=== PATIENT | male | born 2000 | race Caucasian/White ===

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

== ENCOUNTER → 2020-01-17 17:39 | Outpatient (CLI) | payer OTHER, SELFPAY | PROVIDERS: PCP Family Medicine; Referring Provider Family Medicine; Visit Provider Family Medicine | DX: R05 Cough (principal) | CPT/HCPCS: 87633 ==

== ENCOUNTER → 2020-03-04 17:03 | Outpatient (CLI) | payer OTHER, SELFPAY ==
--- NOTE | 2020-03-04 17:06 | RAD_ITS ---
STUDY: X-RAY - LUMBAR SPINE REASON FOR EXAM: Male, 20 years old. Low back pain for about 8 months TECHNIQUE: 5 view(s) of the lumbar spine were obtained. COMPARISON: None FINDINGS: Normal lumbar lordosis. There is no substantial scoliosis. There is a normal alignment of the vertebrae. Normal vertebral bodies and endplates. Normal disc space heights. The soft tissue structures are unremarkable. RAD/L/S Spine Min 4 Views IMPRESSION: Normal x-ray examination of the lumbar spine. Electronically Signed: Ethan Coronado MD at 17:30 EDT , Service support ,
== END ==
PROVIDERS: PCP Family Medicine; Referring Provider Family Medicine; Visit Provider Family Medicine
DX: M54.9 Dorsalgia, unspecified (principal)
CPT/HCPCS: 72110

== ENCOUNTER → 2020-04-22 14:24 | Outpatient (CLI) | payer OTHER, SELFPAY ==
--- NOTE | 2020-04-22 14:26 | MRI_ITS ---
STUDY: MRI LUMBAR SPINE WITHOUT CONTRAST REASON FOR EXAM: Male, 20 years old. back pain, felt and quot;pop and quot; last week when squatting, rt hip pain TECHNIQUE: Standardized fat and water weighted pulse sequences were obtained in the sagittal and axial planes. COMPARISON: X-ray 03/04/2020 FINDINGS: T12-L1: Normal endplates. Normal disc height, hydration and morphology. Normal bilateral facet joints. Normal central canal and bilateral lateral recesses. Normal bilateral intervertebral neural foramina. Normal lumbar lordosis. Mild levoscoliosis centered at L3. Normal conus medullaris that terminates at the T12/L1. L1-2: Normal endplates. Normal disc height, hydration and morphology. Normal bilateral facet joints. Normal central canal and bilateral lateral recesses. Normal bilateral intervertebral neural foramina. L2-3: Mild disc desiccation but no disc protrusion, spinal stenosis, or neural foraminal stenosis. L3-4: Normal endplates. Normal disc height, hydration and morphology. Normal bilateral facet joints. Normal central canal and bilateral lateral recesses. Normal bilateral intervertebral neural foramina. L4-5: Mild broad disc protrusion produces mild spinal stenosis with mild bilateral lateral recess stenosis but no neural foraminal stenosis. L5-S1: Mild broad disc protrusion produces mild spinal stenosis with mild bilateral lateral recess stenosis and mild bilateral neural foraminal stenosis. Normal visualized sacral ala. Normal visualized paraspinous soft tissue structures. MRI/Spine Lumbar (Routine) IMPRESSION: Mild levoscoliosis with degenerative disc disease as described above. Electronically Signed: Jacinto Gary MD at 16:57 EDT Tel , Service support ,
== END ==
PROVIDERS: PCP Family Medicine; Referring Provider Family Medicine; Visit Provider Family Medicine
DX: M54.9 Dorsalgia, unspecified (principal)
CPT/HCPCS: 72148

== ENCOUNTER 2020-04-27 12:15 | Outpatient (RCR) | payer OTHER, SELFPAY ==
--- NOTE | 2020-03-25 15:18 | MASS.EVAL ---
Massage Therapy Evaluation: Initial Evaluation Date: 03/18/2020 SUBJECTIVE: Felton is a 20 year old male who was referred to the [facility] for a massotherapy evaluation by Dr. Mcginnis with the diagnosis of back pain. Felton presents today with the symptoms of pain and tension in his neck, shoulders, back, hips and right shoulder. He also complains of having knee pain that he is being treated with physical therapy at the time. OBJECTIVE: Upon observation Felton has some posture issues with his head and shoulders forward from the neutral position in sitting and standing. After examination and palpation I found Felton to have high muscle tension with tenderness and myofascial restrictions in his sub occipitals, levator scapulae, trapezius, rhomboids, scalenes, and paraspinals muscle group. His QL?s, lumbar paraspinals, piriformis, glute medius, glute minimus all had high tension with fascial restrictions and tender points. The first treatment consisted of a one hour massage to his full body with myofascial release, muscle stripping, trigger point compression techniques. ASSESSMENT: I feel that Felton is a good candidate for massotherapy at this time. He had a favorable response to the first treatment with reduction in his muscle aches, pain and tension. PLAN: The plan of care was reviewed with the patient. The patient is to be seen on an as needed basis for a total of ten sessions with the recommendation of once every month for a one hour treatment.
--- NOTE | 2020-10-14 11:58 | DS.PCM_ITS ---
Massage Therapy Discharge Summary: Discharge Date: 10/14/2020 Felton was seen for a massotherapy evaluation on 03/18/2020 with the diagnosis of back pain. He was treated with three sessions of massage therapy consisting of deep pressure soft tissue techniques, myofascial release and trigger point compression to his cervical, thoracic, lower back, lower extremities and hips. At this time this patient is being discharged from our care at [facility] facility.
== END 2020-04-27 19:00 | disposition home or self-care (01) ==
LOC: MASS 12:15
PROVIDERS: PCP Family Medicine; Visit Provider Family Medicine
DX: M54.9 Dorsalgia, unspecified (principal)
CPT/HCPCS: 97124

== ENCOUNTER → 2020-05-24 09:31 | Outpatient (CLI) | payer OTHER, SELFPAY | PROVIDERS: PCP Family Medicine; Referring Provider Family Medicine; Visit Provider Family Medicine | DX: R05 Cough (principal) | CPT/HCPCS: 87635; 94799; U0003 ==

== ENCOUNTER 2020-05-28 10:00 | Outpatient (RCR) | payer OTHER, SELFPAY ==
--- NOTE | 2020-03-06 07:52 | HP.PTEVAL_ITS ---
Patient's Visit Information LINK SAPP is a 20 year old M referred to Physical Therapy by Dr. Kojo Mcginnis MD with a diagnosis of LBP and B knee pain/PFS. Date of Evaluation: 03/06/20 Physical Therapist: Herminio Garnica, DPT, OCS, CSCS - Visit Plan Frequency: 3x /Week Duration: 2-4 Months Plan: 3x/week for 4-6 weeks to start. Please roll HS and ITB and stretch. Work on yoga stretches for rotation, flexion and ext of LB and progress to I. Work on hip and core strength and quad strength, focus L quad end range strength and hip stabs with core. Biomechanics of squat without collapsing knees. Progression. Activity modification as able. ice if needed. - Subjective Knees and back been hurting since football season. Knees anteriorly with squatting and running. Sitting in small area very hurt knees. 5/10 day after s quatting. Last couple months without gym it is not better. Friend has squat rack and bench and does body weight stuff. Back is similar pattern with sitting adn squatting 5/10 especiallya fter squatting. Sleep is OK for the most part, knees sometimes wake him up. Does nto avoid squatting but doesn't look forward to it. Chores and ADLs are normal. Workouts are squatting benching running, pushups. Did legs everyday and ran alot when in school. - Pain B knee pain. Pain Intensity (Out of 10): 1 Pain Intensity Range: 0, 5 back pain low Pain Intensity (Out of 10): 1 Pain Intensity Range: 0, 5 - Objective wALKS NORMAL AND TRASNITIONS NORMAL TODAY. Knees collapse in with dips and squats. Tender B lateral patella underside. Full knee AROM and flexibility is decent except HS -20 90/90 B and ITB tight B. L more tender than R and hard time getting full quad contraction qucikly on L side. Strength L quad 4 and R 4+, HS 5/5 B, hips abd, ext rotation and ext 4- and flexion 4+ B. ankles strength 5/5. + patellar grind B, - bounce home B. LB AROM end range of ext stiff adn painful but better with repetition, flexion similar. sB not painful. No tenderness in soft tissue of LB but PA pressure hurts mid lumbar. reflexes 2/3 patella and achilles. Sensation LE WNL to gross light touch. frontal plane mechanics of feet are WNL and unremarkable. - Goals Goal 1:: I approp LB ROM and core strength to limit future problems. Goal Time Frame: 6-8 Weeks Goal 2:: Full L quad contractiona dn full LB AROM without pain or stiffness. Goal Time Frame: 4-6 Weeks Goal 3:: squat without increasing pain for football Goal Time Frame: 4-6 Weeks Goal 4:: Sllep without waking at night due to pain. Goal Time Frame: 4-6 Weeks - Rehabilitation Potential Physical Therapy Diagnosis: B PFS and LBP/tightness. Rehabilitation Potential: Good - Anticipated Interventions Patient/Client Instruction: Educate patient on: Condition, Plan of Care For the Purpose of:: To decrease pain, To improve muscle performance and motor function, To increase tolerance to activity/condition/position Therapeutic Exercise to Include: Strength training, Postural training, Flexibilty training, Neuromotor development, Passive ROM, Active ROM, Dynamic Lumbar Stabilization, Delia Exercises For the Purpose of:: To decrease pain, To increase ROM, To improve muscle performance and motor function, To increase tolerance to activity/condition/position Manual Therapy Techniques to Include: Mobilization, Soft tissue mobilization Cryotherapy (ice pack, ice massage): Yes Thank you for the opportunity to evaluate your patient. For Medicare and Medicare HMO plans, please review the plan of care and approve it. It will need to be FAXED BACK to us at [phone] for Medicare purposes. For Medicare only, by signing this I certify the plan of care. Please let me know if there are questions or concerns regarding this plan of care. Physician Signature: Date:
--- NOTE | 2020-04-06 13:21 | HP.PTREVAL_ITS ---
Dr. Kojo Mcginnis MD, It has been my pleasure to treat LINK SAPP over the last 7 visits for LBP and B knee pain/PFS. Please see the progress note below for an update on the physical therapy plan of care! Subjective: Knees quite a bit better. 2/10 intermittently. Being on them is still worse but he hasn't noticed them last few weeks. Back still hurts all the time no matter what. It is better moving and worse sitting and at rest. No problem sleeping. Lifting heavy worse with hang cleans and pwer cleans, linges etc. Objective/Function: Better LB ROM but flexion end range still hurts and ext slightly limited. Squatting shows some ext in Lumbar spine due to diminished pelvic mobility. Walks wella dn steps one at a time adn two at a time without pain today in knees. Plan Plan: 2x/week for 4 weeks... Please encourage to do hip and LE strength on his own in gym before or after session. Spend clinic time... 1. ensuring squat and hang clean technique especially with neutral spine. 2. Work on HS and hip flexor and hip and LB felxibility with rollotu and yoga moves and continued quaruped and functional core strength. Progress to I. Goals Goal 1:: I approp LB ROM and core strength to limit future problems. Goal Time Frame: 6-8 Weeks Goal Progress: Progressing Goal 2:: Full L quad contractiona dn full LB AROM without pain or stiffness. Goal Time Frame: 4-6 Weeks Goal Progress: flexion spine hurts sligh Goal 3:: squat without increasing pain for football Goal Time Frame: 4-6 Weeks Goal Progress: Legs not back Goal 4:: Sllep without waking at night due to pain. Goal Time Frame: 4-6 Weeks Goal Progress: Goal Met Goal 5:: Squat without losing neutal spine position Goal Time Frame: 2-4 Weeks Goal Progress: NEW GOAL Anticipated Interventions Patient/Client Instruction: Educate patient on: Condition, Plan of Care For the Purpose of:: To decrease pain, To improve muscle performance and motor function, To increase tolerance to activity/condition/position Therapeutic Exercise to Include: Strength training, Postural training, Flexibilty training, Neuromotor development, Passive ROM, Active ROM, Dynamic Lumbar Stabilization, Delia Exercises For the Purpose of:: To decrease pain, To increase ROM, To improve muscle performance and motor function, To increase tolerance to activity/condition/position Manual Therapy Techniques to Include: Mobilization, Soft tissue mobilization Cryotherapy (ice pack, ice massage): Yes Please do not hesitate to contact me at [phone] by phone or Fax: if you have questions or concerns regarding this new plan of care! Sincerely, Herminio Garnica, DPT, OCS, CSCS
--- NOTE | 2020-04-28 15:48 | HP.PTREVAL ---
Dr. Kojo Mcginnis MD, It has been my pleasure to treat LINK SAPP over the last 9 visits for LBP and B knee pain/PFS. Please see the progress note below for an update on the physical therapy plan of care! Subjective: Hurt self squatting and had MRI and showed disc bulges. Had to shut it down for a while. Still in pain in LB 3/10 at rest. Back to baseline, better with moving around. Hurt bad and popped when he was squatting two weeks with light weight. Sleeping OK lately but not able to work out. Working and able to do job without missing it. 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 Hurt in car on way to school though. Knees are fine. Objective/Function: back ext mod limtied and painful , SB are OK. Flexion is painful and limited and slow. 2/3patella adn achilles reflex. Sensation WNL LE. Tender to trasnfer off table but better after pressups. Better ext ROM and less pain after pressups. Overall more tender with movement and still tight in piriformis, hip flexors and HS. Presentation is worse than last session, more acute. MRI results show disc bulges, DDD and levoscoliosis. Trasnfers out of chair and from leaning on table are slower adn wince worthy today. Plan Plan: 3x/week for 4 weeks for ... 1. Get ROM back in ext without pain and progress to flexiona and rotation as tolerated gently, mobs as needed. 2. core strengthening progression on mat. 3. Resume yoga for hip flexibility and LB flexibility when tolerated. 4. Progress back to squats, shoulder press, good mornings, deadlifts when pain gone and moving well GENTLY. ES with ice to LB if needed. Goals appropriate adn fair prognosis. Goals Goal 1:: I approp LB ROM and core strength to limit future problems. Goal Time Frame: 6-8 Weeks Goal Progress: Progressing, approp Goal 2:: Full L quad contractiona dn full LB AROM without pain or stiffness. Goal Time Frame: 4-6 Weeks Goal Progress: flexion spine hurts sligh Goal 3:: squat without increasing pain for football Goal Time Frame: 4-6 Weeks Goal Progress: Legs not back Goal 4:: Sllep without waking at night due to pain. Goal Time Frame: 4-6 Weeks Goal Progress: Goal Met Goal 5:: Squat without losing neutal spine position Goal Time Frame: 2-4 Weeks Goal Progress: NEW GOAL Goal 6:: Move from bed and chair without hesitation. Goal Time Frame: 4-6 Weeks Anticipated Interventions Patient/Client Instruction: Educate patient on: Condition, Plan of Care For the Purpose of:: To decrease pain, To improve muscle performance and motor function, To increase tolerance to activity/condition/position Therapeutic Exercise to Include: Strength training, Postural training, Flexibilty training, Neuromotor development, Passive ROM, Active ROM, Dynamic Lumbar Stabilization, Delia Exercises For the Purpose of:: To decrease pain, To increase ROM, To improve muscle performance and motor function, To increase tolerance to activity/condition/position Manual Therapy Techniques to Include: Mobilization, Soft tissue mobilization Cryotherapy (ice pack, ice massage): Yes Please do not hesitate to contact me at [phone] by phone or if you have questions or concerns regarding this new plan of care! Sincerely, Herminio Garnica, DPT, OCS, CSCS
--- NOTE | 2020-05-28 10:48 | HP.PTDCSUM_ITS ---
It has been my pleasure to treat LINK SAPP referred by Dr. Kojo Mcginnis MD, with the diagnosis of LBP and B knee pain/PFS for a total of 22 visit(s). Discharge Date: 05/28/20 Please see the following information for a summary of their discharge status. Subjective: Slight pinch with ext or felxion just off to R, otherwise doing well. Will go back to school and let hardware trainer take over in two days. Will fill out LYN prior to departure to send info if requested. B knee pain. Pain Intensity (Out of 10): 0 back pain low Pain Intensity (Out of 10): 2 % Improvement: 70 Objective/Function: aROM L/S is fulla nd painfree at departure today, needed some work as had slight pain at arrival at end ranges of ext adn flexion. Able to squat with light wieghts and extrememfocus without losing appropriate pelvic position. Walks well, elliptical without pain. Goal 1:: I approp LB ROM and core strength to limit future problems. Goal Progress: Goal Met, hardware trainer at [facility] Goal 2:: Full L quad contractiona dn full LB AROM without pain or stiffness. Goal Progress: Goal Met Goal 3:: squat without increasing pain for football Goal Progress: Goal Met, light squat Goal 4:: Sllep without waking at night due to pain. Goal Progress: Goal Met Goal 5:: Squat without losing neutal spine position Goal Progress: met with bar Goal 6:: Move from bed and chair without hesitation. Goal Progress: Goal Met Plan: d/c , pt back to school to see hardware trainer out there adn continue workout as given with slow progression of squats and weights and football. Discharge Comments: Pt back to school and will last picker with hardware trainer at school. May sign a release to talk to or fax to hardware trainer. If there are questions or concerns regarding this patient's physical therapy, please feel free to call me at [phone]. Thank you for the referral of this patient. Sincerely, Herminio Garnica, DPT, OCS, CSCS
== END 2020-05-28 19:00 | disposition home or self-care (01) ==
LOC: PT 10:00
PROVIDERS: PCP Family Medicine; Referring Provider Family Medicine; Visit Provider Family Medicine
DX: M22.2X1 Patellofemoral disorders, right knee (principal); M22.2X2 Patellofemoral disorders, left knee; M54.5 Low back pain
CPT/HCPCS: 97014; 97110; 97140; 97162; 97164; G0283

== ENCOUNTER → 2023-07-12 | Outpatient (CLI) | payer OTHER, SELFPAY | END | disposition home or self-care (01) | LOC: LAB 15:53 | PROVIDERS: PCP Family Medicine; Referring Provider Family Medicine; Visit Provider Family Medicine | DX: N34.1 Nonspecific urethritis (principal) | CPT/HCPCS: 87086 ==

== ENCOUNTER → 2024-12-26 | Outpatient (CLI) | payer OTHER, SELFPAY ==
--- NOTE | 2024-12-26 10:37 | RAD_ITS ---
EXAM: XR Left Foot Complete, 3 or More Views CLINICAL INDICATION: FOOT INJURY TECHNIQUE: Frontal, lateral and oblique views of the left foot. COMPARISON: No relevant prior studies available. FINDINGS: BONES/JOINTS: See below. SOFT TISSUES: Soft tissue swelling without acute fracture. No radiopaque foreign body. RAD/Foot min 3 Views IMPRESSION: 1. Soft tissue swelling without acute fracture. 2. If symptoms persist, further evaluation with CT is recommended. Reading Location: [facility]
== END | disposition home or self-care (01) ==
PROVIDERS: PCP Family Medicine; Referring Provider Family Medicine; Visit Provider Family Medicine
DX: S99.922A Unspecified injury of left foot, initial encounter (principal); X58.XXXA Exposure to other specified factors, initial encounter
CPT/HCPCS: 73630

== ENCOUNTER → 2025-07-14 | Outpatient (CLI) | payer OTHER, SELFPAY ==
--- NOTE | 2025-07-14 11:41 | MRI_ITS ---
PROCEDURE: SPINE CERVICAL (ROUTINE) 07/14/2025 REASON FOR EXAM: CHRONIC HEADACHES, NECK PAIN. ABNORMAL XRAY TECHNIQUE: Procedure Code: MRISP Modality: MR Procedure: SPINE CERVICAL (ROUTINE) Multiplanar and multisequence images were obtained without IV contrast administration. COMPARISON: None. FINDINGS: Vertebrae: Cervical vertebral body heights are preserved. Bone marrow signal is unremarkable. Alignment: Normal. No spondylolisthesis. Spinal Cord: Cervical spinal cord is of normal size and signal intensities. Structures at the foramen magnum are unremarkable. C2-3: Unremarkable C3-4: Unremarkable C4-5: Unremarkable C5-6: There is a broad-based central and left central disc protrusion. There is bilateral uncinate joint arthropathy. There is an anterior disc protrusion complicated by marginal osteophytes. There is mild compression of the thecal sac without central canal stenosis. There is no lateral recess stenosis or foraminal narrowing. C6-7: Unremarkable C7-T1: Unremarkable The paravertebral soft tissues are unremarkable. MRI/Spine Cervical (Routine) IMPRESSION: Degenerative disc disease, C5-6 without central canal stenosis, lateral recess stenosis or foraminal narrowing. Reading Location: [place] [id number]
== END | disposition home or self-care (01) ==
PROVIDERS: PCP Family Medicine; Referring Provider Family Medicine; Visit Provider Family Medicine
DX: M54.2 Cervicalgia (principal); R51.9 Headache, unspecified; R93.89 Abnormal findings on diagnostic imaging of other specified body structures
CPT/HCPCS: 72141